=== PATIENT | female | born 1955 | race Caucasian/White ===

== ENCOUNTER 2016-06-21 17:40 | Emergency (ER) ==
[2016-06-21] MEDS ORDERED: DECADRON IM ONE (18:54)
--- NOTE | 2016-06-21 18:54 | PROVIDER DOCUMENTATION ---
HPI-EENT General - General Chief Complaint: Sore Throat Stated Complaint: SORE THROAT Time Seen by Provider: 06/21/16 18:47 Source: patient Allergies/Adverse Reactions: Patient Allergies Allergy/AdvReac Type Severity Reaction Status Date / Time levofloxacin [From Levaquin] Allergy Unknown Verified 06/21/16 17:50 Penicillins Allergy RASH Verified 06/21/16 17:50 Home Medications: Home Medication List Medication Instructions Recorded Confirmed Last Taken Type Atenolol 25 mg PO DAILY 06/08/14 06/08/14 06/08/14 20:00 History Hydrochlorothiazide PO DAILY 06/08/14 06/08/14 06/08/14 20:00 History Levothyroxine [Synthroid] 75 mcg PO DAILY 06/08/14 06/08/14 06/08/14 20:00 History Meloxicam [Mobic] 15 mg PO DAILY 06/08/14 06/08/14 06/08/14 20:00 History Omeprazole [Prilosec] 20 mg PO DAILY 06/08/14 06/08/14 06/08/14 History Oxycodone HCl/Acetaminophen 1 tab PO Q4-6H PRN PRN #14 tablet 06/08/14 Unknown Rx [Percocet 7.5-325 mg Tablet] Guaifenesin/D-Methorphan Hb/PE 1 each PO Q6-8H PRN PRN #30 tablet 06/21/16 Unknown Rx [Deconex Dmx Tablet] Prednisone [Deltasone] 20 mg PO DIRECTED #12 tablet 06/21/16 Unknown Rx - History of Present Illness-EENT General Nature of Presenting Problem: 60 y/o WF c/o sore throat x 2 days. Denies fevers, chills, sinus tenderness, ear pain, cough or congestion. Denies sob or wheezing. No pre-arrival treatments. Works in the hospital, around sick contacts. denies difficulty breathing, throat swelling or changes in voice. Review of Systems - Adult - REVIEW OF SYSTEMS - ADULT Constitutional: reports: no symptoms reported. denies: chills, fever, fatique Eyes: reports: no symptoms reported. denies: decreased vision, blurred vision, double vision, eye pain Ears, Nose, Mouth & Throat: reports: see HPI, throat pain. denies: ear pain, nose pain Cardiovascular: reports: no symptoms reported. denies: chest pain, palpitations Respiratory: reports: no symptoms reported. denies: cough, shortness of breath , wheezing Gastrointestinal: reports: no symptoms reported. denies: abdominal pain, diarrhea, nausea, vomiting Genitourinary: reports: no symptoms reported. denies: dysuria Musculoskeletal: reports: no symptoms reported. denies: bone pain, back pain, muscle aches Integumentary: reports: no symptoms reported. denies: rash Neurological: reports: no symptoms reported. denies: headache/migraines Psychiatric: reports: no symptoms reported Endocrine: reports: no symptoms reported Hematologic/Lymphatic: reports: no symptoms reported Allergic/Immunologic: reports: no symptoms reported All Other Systems: Reviewed and Negative Past History - Adult - PAST MEDICAL HISTORY-ADULT Review of Records: reports: Old Records Reviewed, Nursing Assessment Review, Medications Reviewed Major Childhood Illnesses: reports: denies history Cardiovascular: reports: HTN Respiratory: reports: denies history Gastrointestinal: reports: denies history Obstetrical/Gynecological: reports: denies history Genitourinary: reports: denies history Musculoskeletal: reports: denies history Neurological: reports: denies history Endocrine/Immune: reports: denies history Other Conditions: reports: denies history - PRIOR SURGERIES/PROCEDURES Surgical/Procedure History: reports: hysterectomy, other (exploratory lap, abdominoplasty) - IMMUNIZATION STATUS Childhood Immunizations: See Nurse Assessment Flu Vaccine: See Nurse Assessment - FAMILY HISTORY Family History: reviewed, not pertinent - SOCIAL HISTORY Smoking: denies Substance Use: none/never Alcohol Use Frequency: never Physical Exam- EENT - Physical Exam EENT Initial Vital Signs Reviewed: Yes General Appearance: appears well, alert, no apparent distress Eye Exam: bilateral eye: normal inspection, PERRL, EOMI Ear Exam: bilateral ear: auricle normal, canal normal, TM normal Nasal Exam: normal inspection Throat Exam: normal mouth inspection, pharynx normal, other (PND) Neck: non-tender, full range of motion, supple, normal inspection. negative: lymphadenopathy Respiratory: chest non-tender, lungs clear, normal breath sounds, no pleuratic chest pain, no respiratory distress. negative: no accessory muscle use, respiratory distress, decreased breath sounds, accessory muscle use, crackles, rales, rhonchi Cardiovascular: normal peripheral pulses, regular rate, rhythm Extremity: normal gait Neurologic: grossly normal, no motor/sensory deficits Psych/Mental Status: normal mood/affect, normal thought content, normal thought process, oriented x 3 Progress - PLAN OF CARE/RESULTS Progress/Plan/Lab Results: Vital Signs Temp Pulse Resp BP Pulse Ox 06/21/16 19:00 98.6 F 72 18 167/100 97 06/21/16 17:47 98.9 F 79 16 142/84 97 levofloxacin [From Levaquin] Allergy (Verified 06/21/16 17:50) Unknown Penicillins Allergy (Verified 06/21/16 17:50) RASH Atenolol 25 mg PO DAILY 06/08/14 Hydrochlorothiazide PO DAILY 06/08/14 Levothyroxine [Synthroid] 75 mcg PO DAILY 06/08/14 Meloxicam [Mobic] 15 mg PO DAILY 06/08/14 Omeprazole [Prilosec] 20 mg PO DAILY 06/08/14 Oxycodone HCl/Acetaminophen [Percocet 7.5-325 mg Tablet] 1 tab PO Q4-6H PRN PRN #14 tablet 06/08/14 Guaifenesin/D-Methorphan Hb/PE [Deconex Dmx Tablet] 1 each PO Q6-8H PRN PRN #30 tablet 06/21/16 Prednisone [Deltasone] 20 mg PO DIRECTED #12 tablet 06/21/16 Laboratory 06/21/16 17:45 Group A Strep Rapid NEGATIVE Orders Category Date Time Status DIRECT STREP PL Stat Lab 06/21/16 17:45 Completed Dexamethasone [Decadron] Med 06/21/16 18:54 Discontinued 4 mg IM NOW ONE Departure - Departure Time of Disposition Order: 18:51 DIAGNOSIS: Sore throat (viral) Disposition: HOME 01 Certified Medical Emergency: Emergent Condition: Stable Additional Instructions: Follow up with your primary care physician ED Follow Up Instructions: You have been treated by a care provider in the Emergency Department. These instructions are being provided to you so you can have an understanding of how to care for yourself upon discharge. Upon discharge from the Emergency Department, you are responsible for making arrangements for follow-up care by a physician of your choice. Take all prescribed medications as directed. Return to the Emergency Department immediately for any new or worsening symptoms. You may call the Physician Referral phone number at [phone] to obtain a list of Physicians who are taking new patients. Prescriptions: Guaifenesin/D-Methorphan Hb/PE [Deconex Dmx Tablet] 1 each PO Q6-8H PRN PRN #30 tablet PRN Reason: Congestion Prednisone [Deltasone] 20 mg PO DIRECTED #12 tablet Referrals: Yonathan Conley MD [Primary Care Provider] - Forms: Return to School/Parent Work Instructions: Prednisone tablets, Sore Throat Attestation - Physician/ MELCHOR Attestation Patient care was provided by Advanced Practice Provider:: Yes Advanced Practice Provider:: Andressa Parsons Advanced Practice Provider documentation review:: The Mid-level provider documentation, treatment plan and medical decision making was reviewed by the physician who agrees with all treatment and medical decision making by the MLP.
[2016-06-21 19:03] VITALS: BP 167/100
== END 2016-06-21 19:07 | disposition home or self-care (01) ==
LOC: P.ED 17:40
DX: J02.8 Acute pharyngitis due to other specified organisms (principal); B97.89 Other viral agents as the cause of diseases classified elsewhere; I10 Essential (primary) hypertension; Z79.899 Other long term (current) drug therapy; Z79.1 Long term (current) use of non-steroidal anti-inflammatories (NSAID)
CPT/HCPCS: 87081; 87430; 96372; J1100